=== PATIENT | female | born 1985 | race Caucasian/White ===

== ENCOUNTER 2016-02-29 10:01 | Emergency (ER) | payer MEDICAID ==
--- NOTE | 2016-02-29 11:03 | ED Physician Chart ---
Chief Complaint/HPI - Patient Information Date Seen:: 02/29/16 Time Seen:: 10:57 Chief Complaint:: fever History of Present Illness:: onset this am w fever and some ST. dry cough. 2 kids are both sick 1 w pharyngitis and 1 w OM. pt is breast feeding from a nrml vag delivery baby now 7 months old. no allergies. no meds taken today no job yet. there is a sister who smokes outside at home. recently moved to area. no local pmd yet. didnt get flu shot. Allergies:: Allergies Allergy/AdvReac Type Severity Reaction Status Date / Time No Known Allergies Allergy Verified 02/05/16 16:25 Vitals:: Vital Signs - 8 hr 02/29/16 10:39 Temp 100.2 F HR 112 RR 16 BP 123/63 O2 Sat % 97 Historian:: Patient Review of Systems - Review of Systems General/Constitutional: Fever, Chills, No weight loss, No weakness, No diaphoresis, No edema, No loss of appetite Skin: No skin lesions, No rash, No bruising Head: No headache, No light-headedness Eyes: No loss of vision, No pain, No diplopia ENT: No earache, No nasal drainage, Sore throat, No tinnitus Neck: No neck pain, No swelling, No thyromegaly, No stiffness, No mass noted Cardio Vascular: No chest pain, No palpitations, No PND, No orthopnea, No edema Pulmonary: No SOB, Cough, No sputum, No wheezing GI: No nausea, No vomiting, No diarrhea, No pain, No melena, No hematochezia, No constipation, No hematemesis G/U: No dysuria, No frequency, No hematuria Lace Cutter: No vaginal discharge Musculoskeletal: No bone or joint pain, No back pain, No muscle pain Endocrine: No polyuria, No polydipsia Psychiatric: No prior psych history, No depression, No anxiety, No suicidal ideation Hematopoietic: No bruising, No lymphadenopathy Allergic/Immuno: No urticaria, No angioedema Neurological: No syncope, No focal symptoms, No weakness, No paresthesia, No headache, No seizure, No dizziness, No confusion, No vertigo Past Medical History - Past Medical History Past Medical History: Other () Social History: Non Smoker Medication: Reviewed Family Medical History - Family Member Mother History Unknown: Yes Ethnicity: Non- Living Status: Still Living Hx Family Cancer: No Hx Family Coronary Artery Disease: No Hx Family Congestive Heart Failure: No Hx Family Hypertension: No Hx Family Stroke: No Physical Exam - Physical Examination General/Constitutional: Awake, Well-developed, well-nourished, Alert, No distress, GCS 15, Non-toxic appearing, Ambulatory Head: Atraumatic Eyes: Lids, conjuctiva normal, PERRL, EOMI Skin: Nl inspection, No rash, No skin lesions, No ecchymosis, Well hydrated, No lymphadenopathy ENMT: External ears, nose nl, Nasal exam nl, Lips, teeth, gums nl Other ENMT comments:: pharynx sltly hypertrophic tonsillar tissue...nonocclusive. no dc. no stridor. neck supple. alert/nontoxic. Neck: Nontender, Full ROM w/o pain, No JVD, No nuchal rigidity, No bruit, No mass, No stridor Respiratory: Nl effort/Exclusion, Clear to Auscultation, No Wheeze/Rhonchi/Rales Cardio Vascular: RRR, No murmur, gallop, rubs, NL S1 S2 GI: No tenderness/rebounding/guarding, No organomegaly, No hernia, Normal BS's, Nondistended, No mass/bruits, No McBurney tenderness : No CVA tenderness Extremities: No tenderness or effusion, Full ROM, normal strength in all extremities, No edema, Normal digits & nails Neuro/Psych: Alert/oriented, DTR's symmetric, Normal sensory exam, Normal motor strength, Judgement/insight normal, Mood normal, Normal gait, No focal deficits Misc: normal gait, Normal back, No paraspinal tenderness ED Septic Shock - . Is Septic Shock (SBP<90, OR Lactate>4 mmol\L) present?: No - <6hrs of presentation: Vital Signs: Vital Signs - 8 hr 02/29/16 10:39 Temp 100.2 F HR 112 RR 16 BP 123/63 O2 Sat % 97 Reassessment (Disposition) - Reassessment Reassessment Condition:: Improved - Diagnosis Diagnosis:: pharyngitis vs viral syndrome - Aftercare/Follow up Instructions Aftercare/Follow-Up Instructions:: Counseled pt regarding lab results/diagnosis & need follow up Medication Prescribed:: rx amox, motrin. return if worse. pt has no pmd...advised to fu w pmd or clinic in next week. may return if worse. list of providers to be given to pt. - Patient Disposition Condition at Disposition:: Improved
== END 2016-02-29 11:26 | disposition home or self-care (01) ==
LOC: ER 10:01
DX: J02.9 Acute pharyngitis, unspecified (principal)
CPT/HCPCS: Z7502; Z7610

== ENCOUNTER 2016-04-18 09:38 | Emergency (ER) | payer MEDICAID ==
--- NOTE | 2016-04-18 10:04 | ED Physician Chart ---
Chief Complaint/HPI - Patient Information Date Seen:: 04/18/16 Time Seen:: 09:48 Chief Complaint:: thumb pain History of Present Illness:: 31-year-old female, mother of 9-month-old , complains of acute, worsening , worse with extension, radiating from the base of the thumb to the forearm, aching, moderate, 6 out of 10, right thumb pain 2 weeks. Also has some similar symptoms but less severe on the left thumb. Allergies:: Allergies Allergy/AdvReac Type Severity Reaction Status Date / Time No Known Allergies Allergy Verified 02/05/16 16:25 Vitals:: Vital Signs - 8 hr 04/18/16 04/18/16 09:56 09:57 Temp 97.8 F HR 75 RR 15 BP 97/59 97/59 O2 Sat % 98 Historian:: Patient Review:: Nurse's Note Reviewed Review of Systems - Review of Systems Other: Complete system review otherwise unremarkable except as noted in HPI. Past Medical History - Past Medical History Past Medical History: No significant medical hx Family History: None Social History: Non Smoker, No Alcohol, No Drug Use, Other (lives with family) Psychiatricy History: None Medication: None Family Medical History - Family Member Mother History Unknown: Yes Ethnicity: Non- Living Status: Still Living Hx Family Cancer: No Hx Family Coronary Artery Disease: No Hx Family Congestive Heart Failure: No Hx Family Hypertension: No Hx Family Stroke: No Hx Family Diabetes: No Hx Family Seizures: No Hx Family AIDS: No Hx Family HIV: No Hx Family Hepatitis: No Hx Family Tuberculosis: No Physical Exam - Physical Examination Other:: INITIAL VITAL SIGNS: Reviewed by me GENERAL: Alert and interactive. No acute distress HEAD: Head is normocephalic and atraumatic EYES: EOMI. . No scleral icterus. No conjunctival injection ENT: Moist mucous membranes. NECK: Supple. No masses. Full range of motion RESPIRATORY: No tachypnea. Clear breath sounds bilaterally. No wheezing, rales, or rhonchi CV: Regular rate and rhythm. No murmurs, rubs, or gallops ABDOMEN: Soft, non-distended, non-tender. No guarding. No rebound. No masses. EXTREMITIES: No deformity. No cyanosis. No edema. There is some pain on thumb extension with resistance. SKIN: Warm and dry. No obvious rashes. NEUROLOGIC: Alert and oriented. Face is symmetric. Speech is normal. Moves all extremities equally. Motor and sensory distally intact. Assessment Splint Care: Splint applied, Splint obs Post Procedure/Splint Exam: No Active Bleeding, Full Range of Motion, Neuro/ Vascular Exam Comments:: Right thumb spica Splint Assessment: Neurovascularly intact post splint placement with good fit. ED Septic Shock - . Is Septic Shock (SBP<90, OR Lactate>4 mmol\L) present?: No - <6hrs of presentation: Vital Signs: Vital Signs - 8 hr 04/18/16 04/18/16 09:56 09:57 Temp 97.8 F HR 75 RR 15 BP 97/59 97/59 O2 Sat % 98 Reassessment (Disposition) - Reassessment Reassessment:: Patient has mom's thumb/de Quervain's tenosynovitis of the right and left thumb. Thumb spica on right thumb. Mom concerned about using ibuprofen. Prescribed acetaminophen. Follow-up PCP 1-2 days. Gave return to ER precautions. Mom says she understands and agrees the plan. Reassessment Condition:: Improved - Diagnosis Diagnosis:: De Quervain's tenosynovitis, left and right thumbs - Aftercare/Follow up Instructions Aftercare/Follow-Up Instructions:: Counseled pt regarding lab results/diagnosis & need follow up, Refer to Discharge Instructions Medication Prescribed:: Acetaminophen - Patient Disposition Discharge/Transfer:: Home Time:: 10:25 Condition at Disposition:: Improved ED Discharge Plan - Patient Disposition Admit/Discharge/Transfer: PT DISCHARGED HOME Condition at Disposition: Improved Instructions: De Quervain's Tenosynovitis-SportsMed Accepting Physician: Dennis Reese [Primary Care Provider] - 1-3 Days
[2016-04-18 10:13] VITALS: BP 97/59
== END 2016-04-18 10:30 | disposition home or self-care (01) ==
LOC: ER 09:38
DX: M65.4 Radial styloid tenosynovitis [de Quervain] (principal)
CPT/HCPCS: Z7502

== ENCOUNTER 2016-10-05 13:04 | Emergency (ER) | payer MEDICAID ==
[2016-10-05] MEDS ORDERED: Sodium Chloride 0.9% 2,000 ML IV ONE (13:49)
--- NOTE | 2016-10-05 13:56 | ED Physician Chart ---
Chief Complaint/HPI - Patient Information Date Seen:: 10/05/16 Time Seen:: 13:40 Chief Complaint:: abdominal pain History of Present Illness:: Patient had onset last night of mid and lower abdominal pain. She's nauseated but had no vomiting. This morning she had 2 times green and black watery diarrhea small in amount. Allergies:: Allergies Allergy/AdvReac Type Severity Reaction Status Date / Time No Known Allergies Allergy Verified 10/05/16 13:20 Vitals:: Vital Signs - 8 hr 10/05/16 13:15 Temp 99.0 F HR 84 RR 16 BP 129/81 O2 Sat % 97 Historian:: Patient Review:: Nurse's Note Reviewed Review of Systems - Review of Systems General/Constitutional: No fever, No chills Skin: No skin lesions Head: No headache Eyes: No loss of vision ENT: No earache Neck: No neck pain Cardio Vascular: No chest pain Pulmonary: No SOB GI: Nausea, No vomiting, Diarrhea, Pain G/U: No dysuria, No frequency, No hematuria Musculoskeletal: No bone or joint pain, No muscle pain Psychiatric: No prior psych history, No depression Hematopoietic: No bruising, No lymphadenopathy Allergic/Immuno: No urticaria, No angioedema Neurological: No syncope, No headache Family Medical History - Family Member Mother History Unknown: Yes Ethnicity: Non- Living Status: Still Living Hx Family Cancer: No Hx Family Coronary Artery Disease: No Hx Family Congestive Heart Failure: No Hx Family Hypertension: No Hx Family Stroke: No Hx Family Diabetes: No Hx Family Seizures: No Hx Family AIDS: No Hx Family HIV: No Hx Family Hepatitis: No Hx Family Tuberculosis: No Grandfather Other Medical History: CHF Physical Exam - Physical Examination General/Constitutional: Well-developed, well-nourished, Alert, No distress Head: Atraumatic Eyes: Lids, conjuctiva normal, PERRL Skin: Nl inspection, No rash, No skin lesions, No ecchymosis, Well hydrated, No lymphadenopathy ENMT: External ears, nose nl Neck: No nuchal rigidity Respiratory: Nl effort/Exclusion, Clear to Auscultation Cardio Vascular: RRR, No murmur, gallop, rubs, NL S1 S2 GI: No organomegaly, No hernia, Normal BS's, Nondistended, No mass/bruits Other GI comments:: 1 out of 4 epigastric and 1 out of 4 infra umbilical tenderness : No CVA tenderness Extremities: Normal digits & nails Neuro/Psych: Alert/oriented, Judgement/insight normal, Mood normal, No focal deficits Misc: Normal back Labs/Radiology/EKG Results - Lab Results Results: Laboratory Results - last 24 hr 10/05/16 10/05/16 10/05/16 13:20 13:20 13:53 WBC 11.3 H RBC 5.00 Hgb 14.6 Hct 43.4 MCV 86.9 MCH 29.2 MCHC Differential 33.6 RDW 12.1 Plt Count 288 MPV 7.5 Neutrophils % 69.6 Lymphocytes % 22.9 Monocytes % 5.1 Eosinophils % 1.0 Basophils % 1.4 Sodium Potassium Chloride Carbon Dioxide Anion Gap BUN Creatinine Est GFR ( Amer) Est GFR (Non-Af Amer) BUN/Creatinine Ratio Glucose Calcium Magnesium Lipase Urine Source [place] Urine Color YELLOW Urine Clarity SL. CLOUDY Urine pH 5.5 Ur Specific [place] <= 1.005 Urine Protein NEGATIVE Urine Glucose (UA) NEGATIVE Urine Ketones NEGATIVE Urine Blood TRACE Urine Nitrate NEGATIVE Urine Bilirubin NEGATIVE Urine Urobilinogen 0.2 Ur Leukocyte Esterase NEGATIVE Urine RBC 0-2 Urine WBC NONE SEEN Ur Epithelial Cells OCCASIONAL Urine Bacteria NONE SEEN Urine Test NEGATIVE 10/05/16 10/05/16 13:53 13:53 WBC RBC Hgb Hct MCV MCH MCHC Differential RDW Plt Count MPV Neutrophils % Lymphocytes % Monocytes % Eosinophils % Basophils % Sodium 136 Potassium 3.8 Chloride 107 Carbon Dioxide 25.7 Anion Gap 7.1 BUN 10 Creatinine 0.9 Est GFR ( Amer) > 60.0 Est GFR (Non-Af Amer) > 60.0 BUN/Creatinine Ratio 11.1 Glucose 95 Calcium 10.9 H Magnesium 2.1 Lipase 23 Urine Source Urine Color Urine Clarity Urine pH Ur Specific [place] Urine Protein Urine Glucose (UA) Urine Ketones Urine Blood Urine Nitrate Urine Bilirubin Urine Urobilinogen Ur Leukocyte Esterase Urine RBC Urine WBC Ur Epithelial Cells Urine Bacteria Urine Test Assessment - Assessment General Assessment: At 1510 patient's pain was improved; bowel sounds were hyperactive; right lower quadrant tenderness without rebound was present. At 1620 patient had lower abdominal tenderness maximum in the RLQ. NO RLQ rebound. At 1830 had lower abdominal tenderness including over the RLQ. Pain is less. ED Septic Shock - . Is Septic Shock (SBP<90, OR Lactate>4 mmol\L) present?: No - <6hrs of presentation: Vital Signs: Vital Signs - 8 hr 10/05/16 13:15 Temp 99.0 F HR 84 RR 16 BP 129/81 O2 Sat % 97 Reassessment (Disposition) - Reassessment Reassessment Condition:: Improved - Diagnosis Diagnosis:: viral enteritis; leukocytosis - Aftercare/Follow up Instructions Aftercare/Follow-Up Instructions:: Refer to Discharge Instructions - Patient Disposition Discharge/Transfer:: Home Condition at Disposition:: Stable, Improved
[2016-10-05 14:01] LABS: % BASOPHILS 1.4 % (0.0-2.0); % LYMPHOCYTES 22.9 % (20.0-50.0); % MONOCYTES 5.1 % (2.0-10.0); % NEUTROPHILS 69.6 % (40.0-80.0); HEMATOCRIT 43.4 % (35.0-45.0); HEMOGLOBIN 14.6 gm/dL (11.7-15.5); MEAN CELL VOLUME 86.9 fl (81-100); MEAN CORPUSCULAR HEMOGLOBIN 29.2 pg (27.0-31.0); MEAN CORPUSCULAR HGB CONC 33.6 pg (28.0-36.0); MEAN PLATELET VOLUME 7.5 fl; NEUTROPHILE ABSOLUTE 7.8 Th/cmm (1.8-8.0); PLATELET COUNT 288 Th/cmm (150-400); RED CELL DISTRIBUTION WIDTH 12.1 % (11.5-20.0); WHITE BLOOD COUNT 11.3 Th/cmm (4.8-10.8)
[2016-10-05 14:04] LABS: URINE BILIRUBIN NEGATIVE (NEGATIVE); URINE BLOOD TRACE (NEGATIVE); URINE GLUCOSE (UA) NEGATIVE (NEGATIVE); URINE KETONE NEGATIVE (NEGATIVE); URINE PH 5.5 (4.6 - 8.0); URINE PROTEIN NEGATIVE (NEGATIVE); URINE UROBILINOGEN 0.2 E.U./dL (0.2 - 1.0)
[2016-10-05 14:09] LABS: URINE COLOR YELLOW
[2016-10-05 14:14] LABS: URINE BACTERIA NONE SEEN /hpf (NONE SEEN); URINE EPITHELIAL CELLS OCCASIONAL /lpf (FEW); URINE RBC 0-2 /hpf (0-5); URINE WBC NONE SEEN /hpf (0-5)
[2016-10-05 14:22] LABS: ANION GAP 7.1 (7.0-16.0); BUN - UREA NITROGEN 10 mg/dL (7-25); BUN/CREATININE RATIO 11.1; CALCIUM SERUM 10.9 mg/dL (8.6-10.3); CARBON DIOXIDE 25.7 mEq/L (21.0-31.0); CHLORIDE 107 mEq/L (98-107); CREATININE - SERUM 0.9 mg/dL (0.6-1.2); GLUCOSE 95 mg/dL (70-105); MAGNESIUM 2.1 mg/dL (1.9-2.7); POTASSIUM SERUM 3.8 mEq/L (3.5-5.1); SODIUM SERUM 136 mEq/L (136-145)
--- NOTE | 2016-10-06 08:43 | Diagnostic Imaging Report ---
Exam: Ultrasound examination the abdomen. : HISTORY right lower quadrant tenderness Findings: Real-time ultrasound examination of the abdomen was performed multiple planes. The study demonstrates normal appearance of liver parenchyma. The gallbladder is free of calculi the common bile duct measures 3 mm. The pancreas poorly seen. There is no evidence of obstructive uropathy or nephrolithiasis. Right kidney measures 10.3 x 4 x 4.9 cm. Left kidney measures 10.4 x 5.5 x 6.5 cm. The spleen is prominent with with the 11.5 cm span. No free fluid is noted. Incidentally noted right ovarian cyst measuring 1.3 cm. IMPRESSION: Essentially unremarkable examination of the abdomen.
--- NOTE | 2016-10-06 08:47 | Diagnostic Imaging Report ---
Exam: CT examination abdomen pelvis HISTORY: Appendicitis Total DLP equals 403 CTDI equals 9.3 Findings: Multiple contiguous thin section of the abdomen pelvis obtained from lower thorax to the pubic symphysis without administration of intravenous or oral contrast material. No prior studies available for comparison. The study demonstrates normal aeration of lung parenchyma the bases The liver parenchyma and spleen are normal. The adrenal glands intact. The pancreas is normal. The gallbladder is intact. The kidneys demonstrate no evidence of obstructive uropathy or nephrolithiasis. Large amount of fat fecal material is noted throughout the colon with a question of residual contrast material most likely from previous examination. The appendix is normal. No free fluid appreciated. There is no evidence of diverticular disease of diverticulitis. Uterus is enlarged measuring 9.3 cm diameter with the question of ovarian cysts bilaterally ultrasound examination of pelvis might be helpful The urinary bladder is normal. The bony structures demonstrate no evidence for blastic or lytic changes. IMPRESSION: 1 Normal appendix 2. Prominence of the uterus question of ovarian cysts, ultrasound examination of pelvis might be helpful
== END 2016-10-05 18:55 | disposition home or self-care (01) ==
LOC: ER 13:04
DX: A08.4 Viral intestinal infection, unspecified (principal); D72.829 Elevated white blood cell count, unspecified
CPT/HCPCS: 99285; 96374; 76700; 74176; 36415; 85025; 81001; 81025; 83690; 83735; 80048; J2405; J7030; Z7502